=== PATIENT | male | born 1980 | race Caucasian/White ===

== ENCOUNTER 2023-08-12 19:34 | Emergency (ER) | payer MEDICAID, OTHER ==
[2023-08-12] MEDS ORDERED: Carvedilol 6.25 MG Tab PO ONE (19:51)
[2023-08-12] MEDS ORDERED: ALPRAZolam 0.25 MG Tab PO ONE (19:51)
[2023-08-12] MEDS ORDERED: rOPINIRole 0.5 MG Tab PO SCH (21:00)
[2023-08-12] MEDS ORDERED: QUEtiapine 100 MG Tab PO SCH (21:00)
== END 2023-08-12 20:19 ==
LOC: VM.ED 19:34
DX: Z02.89 Encounter for other administrative examinations (principal); I10 Essential (primary) hypertension; I25.10 Atherosclerotic heart disease of native coronary artery without angina pectoris; Z87.891 Personal history of nicotine dependence
CPT/HCPCS: 99283; A9270